=== PATIENT | female | born 2005 | race Caucasian/White ===

== ENCOUNTER 2025-05-09 07:30 | Emergency (ER) | payer MEDICAID ==
[~2025-05-09] VITALS: Ht 149.9 cm; Wt 47.0 kg
[2025-05-09 07:42] VITALS: BP 113/79; PULSE 88; RESP 16; TEMP 97.7; O2SAT 98
[2025-05-09 08:08] LABS: BASOPHILS % (AUTO) 1.2 % (0.0-2.0); EOSINOPHILS % (AUTO) 1.1 % (1.0-6.0); HEMATOCRIT 43.5 % (36-46); HEMOGLOBIN 14.9 g/dL (12.0-16.0); LYMPHOCYTES % (AUTO) 29.2 % (22.0-44.0); MEAN CORPUSCULAR HEMOGLOBIN 30.8 pg (26.0-34.0); MEAN CORPUSCULAR HGB CONC 34.3 G/dL (31.0-37.0); MEAN CORPUSCULAR VOLUME 90 fL (80-100); MONOCYTES # (AUTO) 0.3 K/uL (0.1-1.0); MONOCYTES % (AUTO) 4.3 % (2.0-9.0); NEUTROPHILS # (AUTO) 4.5 K/uL (1.8-7.7); NEUTROPHILS % (AUTO) 64.2 % (40.0-70.0); PLATELET COUNT (AUTO) 352 K/uL (150-450); RED BLOOD CELL COUNT(AUTO) 4.85 MIL/uL (4.00-5.20); RED CELL DISTRIBUTION WIDTH 12.7 % (11.5-14.5); WHITE BLOOD COUNT (AUTO) 6.9 K/uL (4.5-11.0)
[2025-05-09] MEDS: ACETAMINOPHEN 325 MG TABLET PO ONE (08:09)
[2025-05-09] MEDS: SODIUM CHLORIDE 0.9% 1,000 ML IV ONE (08:09)
[2025-05-09] MEDS: FAMOTIDINE 20 MG/2 ML VIAL IVP ONE (08:09)
[2025-05-09] MEDS: ONDANSETRON HCL 4 MG/2 ML VIAL IVP ONE (08:09)
[2025-05-09 08:10] LABS: APPEARANCE,URINE CLEAR (CLEAR); BILIRUBIN,URINE NEGATIVE (NEGATIVE); COLOR,URINE YELLOW (YELLOW); GLUCOSE, URINE (UA) NEGATIVE (NEGATIVE); KETONES,URINE 40-60 mg/dL (NEGATIVE); LEUKOCYTE ESTERASE ,URINE NEGATIVE (NEGATIVE); NITRATE,URINE NEGATIVE (NEGATIVE); OCCULT BLOOD,URINE NEGATIVE (NEGATIVE); PH,URINE 5.5 (5.0-8.0); PROTEIN,URINE TRACE mg/dL (NEGATIVE); SPECIFIC GRAVITIY, URINE 1.026 (1.003-1.030); UROBILINOGEN,URINE <=1.0 mg/dL (<=1.0)
[2025-05-09 08:15] LABS: HCG,QUAL URINE NEGATIVE (NEGATIVE)
[2025-05-09 08:17] LABS: ANION GAP 6 mmol/L (8-16); CALCIUM, TOTAL 9.6 mg/dL (8.8-10.5); CARBON DIOXIDE 28 mmol/L (22-29); CHLORIDE 101 mmol/L (98-107); CREATININE 0.71 mg/dL (0.60-1.30); GLOMERULAR FILTR. RATE CALC > 60 mL/min (>60); GLUCOSE,RANDOM 106 mg/dL (70-110); POTASSIUM 4.4 mmol/L (3.5-5.1); SODIUM SERUM 135 mmol/L (136-145); UREA NITROGEN, BLOOD 17 mg/dL (7-18)
[2025-05-09] MEDS ORDERED: SODIUM CHLORIDE 0.9% 100 ML ONE (08:21)
[2025-05-09] MEDS ORDERED: 0.9% SODIUM CHLORIDE 10 ML SYRINGE IVP ONE (08:21)
[2025-05-09] MEDS ORDERED: IOHEXOL 300 MG/ML 100 ML VIAL ONE (08:21)
[2025-05-09 08:26] LABS: ALBUMIN 4.7 g/dL (3.4-5.0); BILIRUBIN,DIRECT 0.3 mg/dL (0.00-0.20); TOTAL PROTEIN, SERUM 8.6 g/dL (6.4-8.2)
[2025-05-09] MEDS ORDERED: ONDA-104 PO (09:16)
== END 2025-05-09 09:30 | disposition home or self-care (01) ==
LOC: EMS 07:30
DX: R19.7 Diarrhea, unspecified (principal); R10.31 Right lower quadrant pain
CPT/HCPCS: 99285; 74177; 96374; 96375; 80048; 80076; 81003; 83690; 85025; 36415; 84703; J3490; J2405; J7030; J7050; Q9967